=== PATIENT | female | born 1960 | race Caucasian/White ===

== ENCOUNTER 2023-11-26 13:17 | Outpatient (REF) | payer MEDICARE, MEDICAID, SELFPAY ==
--- NOTE | ~2023-11-26 | XR_ITS ---
EXAMINATION: XR HIP, RIGHT CLINICAL INFORMATION: Bilateral hip pain for 3 months. COMPARISON: None available. TECHNIQUE: Two views of the right hip. FINDINGS: No fracture identified. Alignment is anatomic. Hip joint space appears maintained. Soft tissues appear unremarkable. XR/XR hip RT min 2V IMPRESSION: Normal plain film examination of the right hip. Electronically signed by: Eric Pacheco MD 11/26/2023 04:27 PM EDT
== END 2023-11-26 13:18 | disposition home or self-care (01) ==
LOC: HO.HHCX 13:17
PROVIDERS: Visit Provider Internal Medicine Geriatric Medicine
DX: M25.551 Pain in right hip (principal); M70.61 Trochanteric bursitis, right hip
CPT/HCPCS: 73502

== ENCOUNTER 2023-12-11 10:37 | Outpatient (AMB) | payer MEDICAID, SELFPAY ==
--- NOTE | 2023-12-11 11:07 | A.OFFVIS_ITS ---
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 Patient reports her pain has been present for several of months and in the beginning of october her pain increased. States in July she had a rollerblading accident. Tylenol, ibuprofen, BCQ no longer providing her with relief. She has constant pain that is located on the lateral side of her hip and radiates down her leg. She was seen at [facility] who referred patient to discuss cortisone injection. She mentions some relief with accupuncture. She uses a cane with ambulation. 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 She reports she had a rollerblade accident in July where she sustained a fall. She was seen at [facility] who referred her to discuss cortisone injection. She had tried Tylenol, ibuprofen and BCQ that provided her relief in the past however that has not been providing any relief. She currently states she has constant pain at the lateral aspect of her hip that radiates down her leg. Her pain is aggravated with laying on sides, weight bearing, and at night. She finds mild relief with acupuncture. She uses a cane for ambulation. [facility] Surgical History (Updated 12/11/23 @ 11:17 by KARUNA Anderson) Hx of brain surgery Hx of bilateral mastectomy History of gastric surgery Social History (Updated 12/11/23 @ 11:16 by KARUNA Anderson) Patient Tobacco Use Status: Never used Tobacco Current occupational status: disabled Review of Systems Const All systems reviewed & are unremarkable except as noted in HPI and below Physical Exam Vital Signs: BMI result Body Mass Index 22.3 Const General: cooperative, healthy appearing, comfortable, no acute distress, well developed and alert Orientation/consciousness: patient oriented x3 HEENT Head: Yes normal to inspection, Yes normocephalic and Yes atraumatic Eyes General: appearance normal, both eyes and all related structures Resp Effort & Inspection: normal respiratory effort and able to speak in complete sentences Cardio Rate: regular rate Peripheral pulses: Peripheral pulses 2+ throughout GI Palpation (GI): Soft to palpation Skin Lesions: no lesions Rashes: no rashes Neuro General: patient oriented x3 Extrem Other: Right hip: Normal to inspection. No pain with ROM of the hip. Pain along the greater trochanter. No pain with hip flexion or abduction. Negative tenderness along the SI joint. Negative SLR. NVI. Office Procedures Joint Injection/Aspiration Joint Injection/Aspiration Details: right trochanteric bursa Prep: site was prepped using aseptic technique, ethochloride spray was applied and injection warnings given Injected: 80 mg of, DepoMedrol, with 8 mL of and 1% plain lidocaine Procedure: The patient tolerated the procedure well and there was some relief with the local anesthesia Coding 03995 - Glenohumeral/Tronchanteric Bursa/Intraarticular Procedure code (CPT) selection complete Results Reviewed Results Reviewed: Xrays were obtained in the office today and personally reviewed by me of the right hip are negative for acute abnormalities. Assessment & Plan Assessment & Plan (1) Trochanteric bursitis, right hip: Code(s): M70.61 - Trochanteric bursitis, right hip Category: Medical Plan We discussed options today, which include steroid injection. The patient did consent to move forward with the right hip injection, which was tolerated well. I recommended rest, ice, and elevation and OTC anti-inflammatories as needed for discomfort. If symptoms persist or worsen over the next 6-8 weeks, patient will contact the office, otherwise follow-up as needed. ? Orders: Orders PT Evaluation and Treatment Today M70.61 - Trochanteric bursitis, right hip XR pelvis 1-2V Today M25.559 - Pain in unspecified hip Patient Instructions: Scribed for Ta-Lalitha Alejandre PA-C, by Branden Abhang, er medical technician, on 12/11/2023 at 11:00 AM EST.? I, Siddhartha Alejandre PA-C, have personally reviewed and agree with the information entered by the scribe. Coding Level of Care Code New Pt Level 3 (22658) Complex EM visit Add On G2211 Diagnoses Trochanteric bursitis, right hip M70.61 CPT Codes Coding - Joint 7: 26247 - Glenohumeral/Tronchanteric Bursa/Intraarticular ([id number])
[2023-12-11 11:18] VITALS: BMI 22.3
== END 2023-12-11 11:52 | disposition home or self-care (01) ==
PROVIDERS: PCP Nurse Practitioner Family; Visit Provider Physician Assistant
DX: M70.61 Trochanteric bursitis, right hip (principal)
CPT/HCPCS: 20610; 99203

== ENCOUNTER 2023-12-11 11:48 | Outpatient (REF) | payer MEDICAID, SELFPAY | END 2023-12-11 11:49 | disposition home or self-care (01) | LOC: HO.HOSX 11:48 | PROVIDERS: Visit Provider Physician Assistant | DX: M25.559 Pain in unspecified hip (principal); M70.61 Trochanteric bursitis, right hip | CPT/HCPCS: 20610; 72170; 99212; J1010 ==

== ENCOUNTER 2024-02-11 13:11 | Outpatient (AMB) | payer MEDICAID, SELFPAY ==
[2024-02-11 13:14] VITALS: BMI 22.3
--- NOTE | 2024-02-11 13:14 | A.OFFVIS_ITS ---
Vital Signs 02/11/24 13:14 Height 5 ft 4 in Weight 130 lb BMI 22.3 Intake Visit Reasons: OV - Right Hip Bursitis - Injected Intake Note: Nedra is a 63 year old female who presents today for a follow up of her right hip bursitis. Patient reports her pain has been present for several of months and in the beginning of october her pain increased. States in July she had a rol lerblading accident. Takes Tylenol, ibuprofen no longer providing her with relief. She has constant pain that is located on the lateral side of her hip and radiates down her leg. Patient was last seen with Siddhartha who injected the right hip bursa on 12/11/23 and a script for PT was provided.Patient states she has had some relief along with P.T she is dong for her I.T band. States she wants to know if she should have an MRI or CT scan for further evaluation. . Allergies No Known Allergies Allergy (Verified 02/11/24 13:22) HPI HPI OV - Right Hip Bursitis - Injected: Details: Nedra is a 63 year old female who presents today for a follow up of her right hip bursitis. Patient reports her pain has been present for several of months and in the beginning of october her pain increased. States in July she had a rollerblading accident. Takes Tylenol, ibuprofen no longer providing her with relief. She has constant pain that is located on the lateral side of her hip and radiates down her leg. Patient was last seen with Siddhartha who injected the right hip bursa on 12/11/23 and a script for PT was provided.Patient states she has had some relief along with P.T she is dong for her I.T band. States she wants to know if she should have an MRI or CT scan for further evaluation. . She describes severe aching pain that extends laterally from her hip down over her anterior thigh and into her ankle. Sometimes this is severe. She denies any back pain. She states the injection there bursa helped a small amount but it was not PFSH Surgical History Hx of brain surgery Hx of bilateral mastectomy History of gastric surgery Social History Patient Tobacco Use Status: Never used Tobacco Current occupational status: disabled Physical Exam Vital Signs: BMI result Body Mass Index 22.3 Extrem Other: Vague tenderness to palpation over the right iliotibial band otherwise unremarkable exam. No pain with hip range of motion. Results Reviewed Results Reviewed: I personally reviewed relevant radiographs. Normal hip radiographs Assessment & Plan Assessment & Plan (1) Radiculopathy: Code(s): M54.10 - Radiculopathy, site unspecified Category: Medical Plan: This is a 63-year-old woman who has been undergoing treatment for cancer for the past several years and who is trying to get back into shape. Every time she tries where she feels limited by right leg pain. There is no evidence of hip or knee arthritis and her symptoms sound more like radiculopathy to me. I discussed this with her. She will continue doing physical therapy but I think it is reasonable to obtain an MRI of her lumbar spine. We will follow up accordingly. Orders: Orders MR lumbar spine wo con Today M54.10 - Radiculopathy, site unspecified Coding Level of Care Code Est Pt Level 3 (19037) Diagnoses Radiculopathy M54.10
== END 2024-02-11 13:51 | disposition home or self-care (01) ==
LOC: HO.HOS 13:13
PROVIDERS: PCP Nurse Practitioner Family; Visit Provider Orthopaedic Surgery
DX: M54.10 Radiculopathy, site unspecified (principal)
CPT/HCPCS: 99213

== ENCOUNTER → 2024-02-11 13:11 | Outpatient (BNVA) | payer MEDICAID, SELFPAY | PROVIDERS: PCP Nurse Practitioner Family; Visit Provider Orthopaedic Surgery | DX: M54.10 Radiculopathy, site unspecified (principal) | CPT/HCPCS: 99212 ==

== ENCOUNTER 2024-02-22 15:59 | Outpatient (REF) | payer MEDICARE, MEDICAID, SELFPAY | END 2024-02-22 16:00 | disposition home or self-care (01) | LOC: HO.MRI 15:59 | PROVIDERS: PCP Nurse Practitioner Family; Visit Provider Orthopaedic Surgery | DX: M54.10 Radiculopathy, site unspecified (principal) | CPT/HCPCS: 72148 ==

== ENCOUNTER → 2024-02-22 16:16 | Outpatient (BNV) | payer MEDICARE, MEDICAID, SELFPAY | PROVIDERS: PCP Nurse Practitioner Family; Visit Provider Radiology Diagnostic Radiology | DX: M54.10 Radiculopathy, site unspecified (principal) | CPT/HCPCS: 72148 ==

== ENCOUNTER 2024-09-05 12:25 | Outpatient (REF) | payer MEDICARE, MEDICAID, SELFPAY ==
--- OUTSIDE RECORDS SUMMARY | 2024-09-05 12:56 | XMS_ITS | Clinical Summary ---
Author Organization [employer] Address [address] [place] [address] Care Team Providers Care Body Wirer Name Role Phone AlondraCarlos moses DDCarrie Unavailable [phone] Olivia Estrada NP Primary Care Provider [phone] Allergies Active Allergy Reactions Criticality Noted Date Comments Wound Dressing Adhesive 12/25/2020 Medications b complex vitamins capsule Take 1 capsule by mouth in the morning. Active desmopressin (DDAVP) 0.1 MG tablet Take 0.1 mg by mouth in the morning. 12/06/19 23 Active levothyroxine (Synthroid, Levoxyl) 50 MCG tablet Take 50 mcg by mouth in the morning. 10/10/19 23 Active latanoprost (Xalatan) 0.005 % ophthalmic solution INSTILL 1 DROP IN BOTH EYES AT BEDTIME 01/03/20 22 Active sodium chloride (Manati) 0.65 % nasal spray Administer 1 spray into affected nostril(s) in the morning and 1 spray at noon and 1 spray in the evening. 08/22/19 23 Active dorzolamide-ti molol (Cosopt) 2-0.5 % ophthalmic solution INSTILL 1 DROP IN BOTH EYES TWICE DAILY Active cyclobenzaprin e (Flexeril) 10 MG tabletIndicati ons:Pain of right hip TAKE 1 TABLET BY MOUTH IN THE MORNING, AT NOON AND AT BEDTIME IF NEEDED FOR MUSCLE SPASMS FOR UP TO 10 DAYS 30 tablet 01/22/20 24 Active Additional Information Patient not taking.Reason: no longer taking, Reported on 08/26/2024 psyllium (Metamucil) 0.36 g capsule Take 6 capsules (2.16 g) by mouth Once per day. 180 capsule 11 06/01/19 25 026 Active Additional Information Patient not taking.Reason: no longer taking, Reported on 08/26/2024 gabapentin (Neurontin) 300 MG capsule Take 1 capsule (300 mg) by mouth 3 times daily. 270 capsule 2 08/03/19 25 026 Active naproxen (Naprosyn) 500 MG tablet TAKE 1 TABLET(500 MG) BY MOUTH TWICE DAILY 60 tablet 09/01/19 25 Active escitalopram (Lexapro) 5 MG tablet Take 1 tablet (5 mg) by mouth Once per day. 30 tablet 2 09/06/19 25 025 Active triamcinolone (Kenalog) 0.1 % creamIndicatio ns:Skin eruption Apply topically if needed in the morning and at bedtime (pain and swelling). 30 g 2 09/06/19 25 Active escitalopram (Lexapro) 10 MG tabletIndicati ons:Recurrent major depressive disorder, in full remission (CMS/[facility]) TAKE 1 TABLET(10 MG) BY MOUTH DAILY 90 tablet 2 06/16/19 25 025 Discontinued naproxen (Naprosyn) 500 MG tablet Take 1 tablet (500 mg) by mouth 2 times daily. 60 tablet 08/03/19 25 025 Discontinued Active Problems Problem Noted Date Diagnosed Date Disorientation 09/05/2024 Anxiety 09/05/2024 Skin eruption 09/05/2024 Acquired hypothyroidism 09/05/2024 Overweight 09/05/2024 Neuropathy 08/02/2024 Other constipation 05/31/2024 Lumbar radiculopathy 02/29/2024 Lateral pain of right hip 12/01/2023 Trochanteric bursitis of right hip 12/01/2023 Recurrent major depressive disorder, in full rem ission 09/22/2023 Assessment & Plan (10/28/2023 9:15 AM EDT): Stable on lexapro 10 mg, given no side effects, pt decided to not adjust meds at this time Allergic rhinitis 06/29/2023 Anemia 06/29/2023 Asthma 06/29/2023 Bronchitis 06/29/2023 Eczema 06/29/2023 History of bilateral mastectomy 06/29/2023 Malignant neoplasm of breast 06/29/2023 Dental caries 02/02/2023 Dental calculus 01/13/2023 Generalized gingival recession, moderate 023 Pituitary lesion 08/19/2022 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 [address] [place] [address] Olivia Estrada NP Disorientation (Primary Dx); Anxiety; Skin eruption; Acquired hypothyroidism 09/05/2024 Travel 08/31/2024 Travel 08/30/[address] [facility] [address] [place] [address] Olivia Estrada NP 08/26/2024 3:00 PM EDT Office Visit [facility] ADULT DENTAL [address] [place] [address] Lauren Mcdowell Clenching of teeth (Primary Dx); Generalized gingival recession, moderate; Encounter for dental examination 08/22/2024 Travel 08/02/[address] [facility] [address] [place] [address] Olivia Estrada NP Neuropathy (Primary Dx) 07/01/[address] [facility] PEDS [address] [place] [address] Olivia Estrada NP 06/13/[address] [facility] [address] [place] [address] Olivia Estrada NP Recurrent major depressive disorder, in full remission ([facility]) from Last 3 Months Immunizations Immunization Administration Dates Next Due Influenza Injectable Quadriv alant Preservative Free IIV4 MDCK 12/27/2019,12/22/2016 Influenza Whole 03/10/2012, 9,01/31/2008,2005 Influenza injectable quadriv alent IIV4 with preservative 01/08/2019 Influenza injectable quadriv alent preservative free 12/10/2021,12/20/2020 Influenza, IIV3, injectable 12/22/2016,0 03/29/2015,02/24/2014,2013,12/06/2010,02/25/2010 Influenza, seasonal, injecta ble, preservative free 11/26/2023,02/03/2016,03/11/2012 Novel [id number], all formulations 02/27/2009 Pfizer Covid-19 Vaccine 12+ 01/22/2021 TD (adult), 2 Lf tetanus tox oid, preservative free, adsorbed 10/16/2005 Td (adult), unspecified 10/16/2005 Tdap 06/25/2016 Zoster, Recombinant 09/26/2019,05/05/2019 Social History Tobacco Use Types Packs/Day Years Used Date Smoking Tobacco: Never Smokeless Tobacco: Never Tobacco Cessation:Counseling Given: Not Answered Alcohol Use Standard Drinks/Week Comments Not Asked 0 (1 standard drink = 0.6 oz pur e alcohol) occasionally Depression Answer Date Recorded Patient Health Questionnaire-9 Score 0 09/22/2023 Patient Health Questionnaire-9 Score 0 09/22/2023 Last PHQ-9: Questionnaire Data Not on file 0 09/22/2023 Housing Stability Answer Date Recorded What is your housing situation today? I have goyo mejia 09/15/[address] you li ve. Do you have problems with any of the following? None of the above 09/15/2023 Food Insecurity Answer Date Recorded Within the past 12 months, y ou worried that your food would run out before you got money to buy more: Never True 09/15/2023 Within the past 12 months,th e food you bought just didn't last and you didn't have enough money to get more: Never True 11/2023 Transportation Answer Date Recorded In the past 12 months, has l ack of transportation kept you from medical appts, meetings, work or from getting things needed for daily living? No 09/15/2023 Utilities Answer Date Recorded In the past 12 months, has t he electric, gas, oil or water company threatened to shut off services in your home? No 09/15/2023 Depression Answer Date Recorded Patient Health Questionnaire-2 Score 0 09/22/2023 Internet Access Answer Date Recorded Internet Access Q1 Yes 11/09/2023 Internet Access Q2 Not on file 11/09/2023 Comments Unknown Sex and Gender Information Value Date Recorded Sex Assigned at Female 01/06/2022 10:25 AM EDT Legal Sex Female 10:25 AM EDT Gender Identity Female 01/06/2022 10:25 AM EDT Sexual Orientation Lesbian 11/26/2023 10 :24 AM EDT Last Filed Vital Signs Vital Sign Reading Time Taken Comments Blood Pressure 100/82 09/05/2024 11:45 AM EDT Pulse 61 09/05/2024 11:45 AM EDT Temperature 36.5 C (97.7 F) 09/05/2024 11:45 AM EDT Respiratory Rate 14 09/05/2024 11:45 AM EDT Oxygen Saturation 96% 09/05/2024 11:45 AM EDT Inhaled Oxygen Concentration - - Weight 65 kg (143 lb 6.4 oz) 09/05/2024 11:45 AM EDT Height 162.6 cm (5' 4 ) 09/05/2024 11:45 AM EDT Body Mass Index 24.61 09/05/2024 11:45 AM EDT Plan of Treatment Upcoming Encounters Date Type Department Care Team (Late st Contact Info) Description 03/06/2025 1:00 PM EST Office Visit [facility] ADULT DENTAL [address] [place] [address] Jeremias, Lauren [address] [place] [address] Health Maintenance Due Date Last Done Comments Mammogram 1960 Hepatitis C Screening 06/18/1977 Pneumococcal Vaccine: 50+ Years (1 of 2 - PCV) 06/18/1978 Pap Smear 06/18/1980 Cervical Cancer Screening 06/18/1989 HPV/Cotest 06/18/1989 RSV Patients and Patients Aged 60 years or older (1 - Risk 60-74 years 1-dose series) 2019 COVID-19 Vaccine (2023- season) 2024 01/18/2024, 12/01/2022, 12/10/2021, Additional history exists Depression Screening 09/21/2024 09/22/2023, 09/22/19 SDOH Screening 09/21/2024 09/22/2023 Dental X-Ray: Bitewings 02/25/2025 02/25/20 24, 09/07/2023, 07/21/2023, Additional history exists Dental Oral Exam 02/26/2025 08/26/2024, , 07/21/2023, Additional history exists Dental Prophylaxis 02/26/2025 08/26/2024, 1 04/27/2023, 07/21/2023, Additional history exists Alcohol/Substance Use Screening 09/05/2025 09/05/2024 Tobacco Screening 09/05/2025 09/05/2024 Dental X-Ray: Full Mouth 01/17/2026 01/16/2023, 08/08 DTaP/Tdap/Td Vaccines (2 - Td or Tdap) 06/25/2026 06/25/2016, 10/16/2005, 10/16/2005 Zoster Vaccines Completed 09/26/2019, 05/05/2019 Influenza Vaccine Completed 11/26/2023, , 12/10/2021, Additional history exists HIB Vaccines Aged Out No longer eligi ble based on patient's age to complete this topic HPV Vaccines Aged Out No longer eligi ble based on patient's age to complete this topic Hepatitis A Vaccines Aged Out No long er eligible based on patient's age to complete this topic Hepatitis B Vaccines Aged Out No long er eligible based on patient's age to complete this topic IPV Vaccines Aged Out No longer eligi ble based on patient's age to complete this topic Meningococcal B Vaccine Aged Out No l onger eligible based on patient's age to complete this topic Meningococcal Vaccine Aged Out No george brandy eligible based on patient's age to complete this topic RSV under 20 months Aged Out No longe r eligible based on patient's age to complete this topic Rotavirus Vaccines Aged Out No longer eligible based on patient's age to complete this topic Procedures Procedure Name Priority Date/Time Associated Diagnosis Comments PERIODIC ORAL EVALUATION - ESTABLISHED PATIENT Routine 08/26/2024 3:00 PM EDT Clenching of teeth Generalized gingival recession, moderate Encounter for dental examination CASE PRESENTATION, DETAILED AND EXTENSIVE TREATMENT PLANNING Routine 08/26/2024 3:00 PM EDT ORAL HYGIENE INSTRUCTIONS Routine 08/26/2024 3:00 PM EDT PROPHYLAXIS - ADULT Routine 08/26/2024 3 :00 PM EDT BITEWINGS - 4 RADIOGRAPHIC IMAGES Routine 02/25/2024 3:00 PM EST Dental plaque PANORAMIC RADIOGRAPHIC IMAGE Routine 01/16/2023 2:30 PM EST from Last 3 Months or Most Recently Relevant to Health Maintenance Insurance [employer] STANDARD [employer] Member Subscriber Plan / Payer (Ef fective 2023-Present) Name:Melissa Burrell Relation to Subscriber:Self Name:Melissa Burrell Payer ID:Not on file Group ID:Not on file Type:Medicaid Address: [place] [id number] [place] [id number] [place] AD[place] ADULT DENTAL - [facility] FULL (MEDICAID) Care Teams Body Wirer Relationship Specialty Start Date End Date Olivia Estrada NP [address] [place] [id number] PCP - General Family Medicine 09/22/23 Carlos Casillas DDS [address] [place] [address] [place] [id number] Oral Surgery 01/12/23
[2024-09-05 14:07] LABS: Alanine Aminotransferase 21 U/L (0-31); Albumin Level 4.2 g/dL (3.5-5.0); Alkaline Phosphatase 71 U/L (39-117); Anion Gap 11 (12-20); Aspartate Amino Transferase 24 U/L (5-31); Bilirubin Total 0.3 mg/dL (0.0-1.0); Blood Urea Nitrogen 16 mg/dL (9-16); Calcium 9.1 mg/dL (8.4-10.2); Carbon Dioxide 24 mmol/L (22-29); Chloride 104 mmol/L (96-108); Estimated Glomerular Filt Rate > 60; Glucose Random 92 mg/dL (60-115); Potassium 5.2 mmol/L (3.3-5.1); Sodium 134 mmol/L (135-145); Total Protein 6.6 g/dL (6.5-8.0)
[2024-09-05 14:34] LABS: TSH reflex Free T4 0.62 uIU/mL (0.32-4.0)
== END 2024-09-05 12:26 | disposition home or self-care (01) ==
LOC: HO.HHCL 12:25
PROVIDERS: PCP Nurse Practitioner Family; Visit Provider Nurse Practitioner Family
DX: R41.0 Disorientation, unspecified (principal); E03.9 Hypothyroidism, unspecified
CPT/HCPCS: 36415; 80053; 84443